=== PATIENT | male | born 1990 | race African-American/Black ===

== ENCOUNTER 2019-11-09 09:55 | Emergency (ER) | payer MEDICAID ==
[~2019-11-09] VITALS: Ht 180.3 cm; Wt 109.0 kg
[~2019-11-09 09:55] MED LIST: ALBU17AE26
[2019-11-09 10:05] VITALS: BP 146/90
[2019-11-09] MEDS ORDERED: IBUPROFEN 600MG TABLET PO STA (10:40)
== END 2019-11-09 11:35 | disposition home or self-care (01) ==
LOC: ER 09:55
DX: B34.9 Viral infection, unspecified (principal); M79.10 Myalgia, unspecified site; J45.909 Unspecified asthma, uncomplicated; F12.10 Cannabis abuse, uncomplicated
CPT/HCPCS: 71045; 99283